=== PATIENT | female | born 1975 | race Hispanic/Latino ===

== ENCOUNTER → 2024-08-11 | Day surgery (SDC) | payer BC ==
[~2024-08-11] MED LIST: ACETAMINOPHEN 1000 MG/100 ML 100 ML IV ONE; ALDACTONE25 MG PO; ESMOLOL HCL 100MG/10ML 10 MG/ML VIAL ONE; LACTATED RINGER'S 1,000 ML ONE; LIDOCAINE HCL 2% LOCAL INJ 5 ML SDV VIAL INJ ONE; METOCLOPRAMIDE HCL 10 MG/2ML VIAL ONE; MONTELUKAST SOD10 MG PO; MOUNJARO7.5 MG/0.5 SQ; ONDANSETRON HCL INJ 2MG/ML 2ML 2 MG/ML VIAL ONE; PROPOFOL IV EMULSION 10 MG/ML 20 ML VIAL ONE; PROPOFOL IV EMULSION 10 MG/ML 50 ML VIAL IV ONE; PROPOFOL IV EMULSION 50 ML IV ONE
[2024-08-11 17:13] VITALS: TEMP 97.3
[2024-08-11 17:45] VITALS: BP 120/81; PULSE 85; RESP 16; O2SAT 97
[2024-08-11 18:14] LABS: WBC,FECAL (FECAL LACTOFERRIN) NEGATIVE (NEGATIVE)
[2024-08-13 20:25] LABS: C-REACTIVE PROTEIN 5 mg/L (0-10)
[2024-08-16 06:14] LABS: ENDOMYSIAL ANTIBODIES, IGA Negative (Negative)
[2024-08-16 09:26] LABS: IMMUNOGLOBULIN A 286 mg/dL (87-352); TISSUE TRANSGLUTAMINASE IGA AB <2 U/mL (0-3)
== END | disposition home or self-care (01) ==
LOC: OR 09:55
PROVIDERS: ATTEND Internal Medicine Gastroenterology
DX: K29.70 Gastritis, unspecified, without bleeding (principal); Z86.0100 Personal history of colon polyps, unspecified; K31.89 Other diseases of stomach and duodenum; K20.90 Esophagitis, unspecified without bleeding; K44.9 Diaphragmatic hernia without obstruction or gangrene; K62.5 Hemorrhage of anus and rectum; K21.9 Gastro-esophageal reflux disease without esophagitis; K57.30 Diverticulosis of large intestine without perforation or abscess without bleeding; K58.9 Irritable bowel syndrome, unspecified; K62.89 Other specified diseases of anus and rectum; K64.8 Other hemorrhoids; E11.9 Type 2 diabetes mellitus without complications; N20.0 Calculus of kidney; Z01.810 Encounter for preprocedural cardiovascular examination; Z79.85 Long-term (current) use of injectable non-insulin antidiabetic drugs; Z79.899 Other long term (current) drug therapy; Z98.890 Other specified postprocedural states; Z85.3 Personal history of malignant neoplasm of breast
CPT/HCPCS: 43239; 45380; 82784; 83516; 83630; 83993; 86140; 86256; 87045; 87177; 87324; 87328; 87449; 93005; J0131; J2003; J2405; J2470; J2704 ×2; J2765; J7121